=== PATIENT | male | born 1950 | race Caucasian/White ===

== ENCOUNTER → 2018-06-25 | Outpatient (CLI) | payer MEDICARE, OTHER ==
--- NOTE | 2018-06-25 11:03 | US ---
EXAMINATION TYPE: US venous doppler duplex LE RT DATE OF EXAM: 06/25/2018 10:52 AM COMPARISON: NONE CLINICAL HISTORY: 67-year-old male R60.0 Edema. Right leg pain. No blood thinners. No swelling. No redness. SIDE PERFORMED: Right TECHNIQUE: The lower extremity deep venous system is examined utilizing real time linear array sonog mar[place] with graded compression, doppler sonography and color-flow sonography. FINDINGS: VESSELS IMAGED: External Iliac Vein (EIV) Common Femoral Vein Deep Femoral Vein Greater Saphenous Vein * Femoral Vein Popliteal Vein Small Saphenous Vein * Proximal Calf Veins (* superficial vessels) Right Leg: Negative for DVT IMPRESSION: No evidence for DVT within the right lower extremity imaged from the groin to the upper calf.
== END | disposition home or self-care (01) ==
LOC: RADUSWWP 10:19
PROVIDERS: ATTEND Family Medicine
DX: R60.0 Localized edema (principal)

== ENCOUNTER → 2018-06-27 | Outpatient (CLI) | payer MEDICARE, OTHER | LOC: LABWHC1 16:39 | PROVIDERS: ATTEND Physical Medicine & Rehabilitation | DX: Z01.812 Encounter for preprocedural laboratory examination (principal); N28.9 Disorder of kidney and ureter, unspecified | CPT/HCPCS: 36415; 82565; 84520 ==

== ENCOUNTER 2018-10-18 10:25 | Day surgery (SDC) | payer MEDICARE, OTHER ==
[2018-10-15 15:41] VITALS: BMI 40.1
[~2018-10-18 10:25] MED LIST: SODIUM CHLORIDE 0.9% 1,000 ML IV SCH
[2018-10-18 11:01] VITALS: TEMP 97.7
[2018-10-18] MEDS ORDERED: SODIUM CHLORIDE 0.9% 500 ML 500 ML IV ONE (11:30)
[2018-10-18] MEDS ORDERED: SODIUM CHLORIDE 0.9% 1,000 ML IV SCH (12:00)
[2018-10-18] MEDS ORDERED: DEXTROSE 5% IN WATER 100 ML with AMIODARONE 150 MG IV ONE (12:02)
[2018-10-18] MEDS ORDERED: AMIODARONE 360 MG in DEXTROSE 5% IN WATER 200 ML IV ONE ×2 (12:03)
--- NOTE | 2018-10-18 12:25 | ECHOT ---
TRANSESOPHAGEAL ECHOCARDIOGRAM Mr. Bryan is a 68-year-old gentleman who recently was found to be in atrial fibrillation. Patient has a prior history of ablation. The patient was advised cardioversion with a success rate of 50%. The patient was given intravenous sedation with propofol by the nurse anesthesiologist. Transesophageal echocardiogram was performed without any complications. Left ventricular chamber is normal in size with evidence of global hypokinesia with estimated ejection fraction of 40%. Left atrium is sumh-jx-xvogdwbryu enlarged. There is no evidence of thrombus in the left atrium. Left atrial appendage is clear. There is no evidence of thrombus. Right ventricle and right atrial chamber are normal in size. The ascending aorta is normal. Aortic and tricuspid valve and mitral valve morphology is normal. There is mild mitral regurgitation noted. There is evidence of small PFO with minimum uayo-ps-tmjzh shunt and small jtvui-dn-vdlm shunt on saline contrast study which is secondary to patient history of prior ablation. Descending thoracic aorta is normal. FINAL IMPRESSION: 1. There is no evidence of thrombus in the left atrial appendage or left atrium. 2. Left ventricular chamber shows global hypokinesia with ejection fraction of 40%. 3. There is mild mitral regurgitation noted. 4. There is evidence of small patent foramen ovale with minimal gixn-se-ibdff and hyexu-us-hypp shunt. This is most likely secondary to patient's history of prior ablation. RECOMMENDATIONS: Proceed with cardioversion. MMODL / IJN: [id number] /
--- NOTE | 2018-10-18 12:31 | CE ---
CARDIAC ELECTROPHYSIOLOGY REPORT PROCEDURE: Cardioversion. Patient was given intravenous sedation with propofol by the nurse spray painter and successful cardioversion was performed with 360 joules applied in the synchronized mode. The patient's vital signs remain stable. We will give the patient IV amiodarone for 6 hours before discharge. MOSHE / GLENDY: [id number] /
[2018-10-18 15:44] VITALS: RESP 18
[2018-10-18 16:17] VITALS: BP 127/68; PULSE 66
== END 2018-10-18 19:11 | disposition home or self-care (01) ==
LOC: CATHCVL 10:25 → 3SCARD 17:08 → CATHCVL 19:11
PROVIDERS: ATTEND Internal Medicine Cardiovascular Disease
DX: I48.1 Persistent atrial fibrillation (principal); I34.0 Nonrheumatic mitral (valve) insufficiency; Q21.1 Atrial septal defect; I44.7 Left bundle-branch block, unspecified; I11.9 Hypertensive heart disease without heart failure; E78.5 Hyperlipidemia, unspecified; Z72.0 Tobacco use; E66.01 Morbid (severe) obesity due to excess calories; Z82.49 Family history of ischemic heart disease and other diseases of the circulatory system; Z79.82 Long term (current) use of aspirin; Z79.899 Other long term (current) drug therapy; Z79.01 Long term (current) use of anticoagulants; Z85.46 Personal history of malignant neoplasm of prostate; Z90.79 Acquired absence of other genital organ(s); Z68.41 Body mass index [BMI] 40.0-44.9, adult
CPT/HCPCS: 93312; 92960; J0282 ×2; 93320; 93325

== ENCOUNTER 2019-02-18 05:34 | Day surgery (SDC) | payer MEDICARE, OTHER ==
[~2019-02-18 05:34] MED LIST changes: +ACETAMINOPHEN TAB 500 MG TAB PO ONE; +MELOXICAM 7.5 MG TAB PO ONE; +ONDANSETRON 4 MG/2 ML VIAL IVP ONE; -SODIUM CHLORIDE 0.9% 1,000 ML IV SCH; +TRANEXAMIC ACID 1,000 MG in SODIUM CHLORIDE 0.9% 100 ML IVPB ONE; +ceFAZolin 3 GM in SODIUM CHLORIDE 0.9% 100 ML IVPB ONE
[2019-02-18] MEDS ORDERED: LIDOCAINE 1% 20 ML VIAL (10MG/ML) FOR IV START INTRADERMA PRN (05:46)
[2019-02-18] MEDS ORDERED: DEXAMETHASONE SOD PHOSPHATE 10 MG/ML 1 ML VIAL IV ONE (05:46)
[2019-02-18] MEDS ORDERED: ONDANSETRON 4 MG/2 ML VIAL IVP PRN ×2 (05:46→08:54)
[2019-02-18] MEDS ORDERED: ROPIVACAINE 246.25 MG, EPINEPHrine 0.5 MG, KETOROLAC 30 MG, cloNIDine HCL/PF 80 MCG, WA... MISCELLANE ONE ×5 (06:25)
[2019-02-18] MEDS: LACTATED RINGERS 1,000 ML IV SCH ×3 (06:37→22:08)
[2019-02-18] MEDS ORDERED: MIDAZOLAM (PF) 2 MG/2 ML VIAL IV ONE (06:47)
[2019-02-18] MEDS ORDERED: SODIUM CHLORIDE 0.9% 100 ML BAG ONE (07:33)
[2019-02-18] MEDS ORDERED: MIDAZOLAM 2 MG/2 ML VIAL ONE (07:33)
[2019-02-18] MEDS ORDERED: PROPOFOL 10 MG/ML 20 ML VIAL IV ONE (07:33)
[2019-02-18] MEDS ORDERED: diphenhydrAMINE 50 MG/ML 1 ML VIAL ONE (07:33)
[2019-02-18] MEDS ORDERED: fentaNYL (PF) 50 MCG/ML 2 ML AMP ONE (07:33)
[2019-02-18] MEDS ORDERED: TRANEXAMIC ACID 1,000 MG/10 ML VIAL ONE (07:33)
[2019-02-18] MEDS ORDERED: ceFAZolin 3,000 MG in SODIUM CHLORIDE 0.9% IRRIGATIO 3,000 ML IRRIGATION ONE (07:38)
[2019-02-18] MEDS ORDERED: ROPIVACAINE 246.25 MG, EPINEPHrine 0.5 MG, KETOROLAC 30 MG, cloNIDine HCL/PF 80 MCG, WA... MISCELLANE STA ×5 (07:45)
[2019-02-18] MEDS ORDERED: ROPIVACAINE 0.2%-NS ON-Q PUMP 1,090 MG, EMPTY PAIN BALL 1 EACH MISCELLANE PRN (08:16)
--- NOTE | 2019-02-18 08:19 | P.ANPRN ---
Procedure Note - Anesthesia - Nerve Block Performed Right Adductor Canal Infusion Time Out Performed: Yes Date of Procedure: 02/18/19 Procedure Start Time: 06:47 Procedure Stop Time: 06:58 Location of Patient Procedure: PreOp Indication: Acute Post-Operative Pain, Requested by physician Sedation Type: Sedate with meaningful contact maintained Preparation: Sterile Prep, Sterile Dressing Position: Supine Catheter: Indwelling Needle Types: Pajunk Needle Gauge: 21 Technique: Ultrasound Injectate: 0.5% Ropivacaine (see comment for volume) (ropi .5% 20cc) Blood Aspirated: No Pain Paresthesia on Injection Noted: No Resistance on Injection: Normal Events: Uneventful and Well Tolerated
[2019-02-18] MEDS ORDERED: LACTATED RINGERS 1,000 ML IV ONE (08:29)
[2019-02-18] MEDS ORDERED: HYDROmorphone 0.5 MG/0.5 ML SYRINGE IVP PRN ×3 (08:54)
[2019-02-18] MEDS ORDERED: TEMAZEPAM 15 MG CAP PO PRN (08:54)
[2019-02-18] MEDS ORDERED: BISACODYL 10 MG SUPP RECTAL PRN (08:54)
[2019-02-18] MEDS ORDERED: HYDROcodone/APAP 5-325MG 1 EACH TAB PO PRN ×2 (08:54)
[2019-02-18] MEDS ORDERED: NALOXONE 0.4 MG/ML 1 ML VIAL IV PRN (08:54)
[2019-02-18] MEDS ORDERED: MAGNESIUM HYDROXIDE 2,400 MG/10 ML CUP PO PRN (08:54)
[2019-02-18] MEDS ORDERED: NA PHOS,M-B/NA PHOS,DI-BA 133 ML ENEMA RECTAL PRN (08:54)
--- NOTE | 2019-02-18 09:58 | P.OP ---
Date of Procedure: 02/18/19 Procedure(s) Performed: PREOPERATIVE DIAGNOSIS: Right knee severe osteoarthritis with genu varum POSTOPERATIVE DIAGNOSIS: Right knee severe osteoarthritis with genu varum OPERATION: Right knee cemented total replacement arthroplasty. ANESTHESIA: Spinal ESTIMATED BLOOD LOSS: 100 ml. STORAGE BATTERY TESTER: None COMPLICATIONS: None apparent. COMPONENTS IMPLANTED: Journey II BCS total knee system from [employer] and Panop[employer]Evelyn INDICATIONS: Mr. Bryan is a 68 year old male with a history of right knee osteoarthritis. The patient's knee is end-stage, and conservative management has failed. The operation of knee replacement has been discussed at length in the office, as well as potential risks and complications. These are inclusive of, but not limited to: bleeding, infection, scarring, discomfort, blood vessel and nerve damage, need for further surgery, failure to relieve symptoms, persi stence, recurrence, or worsening of problems, loosening, dislocation, wear, blood clot, pulmonary embolism, , gait dysfunction, stiffness, and other risks as discussed in the office. The patient elects to proceed and the consent form has been signed. PROCEDURE: The patient was taken to the operating room and positioned on the operating room table in the supine position. Anesthesia was initiated. Care was taken to make sure that all pressure points were adequately padded. The right operative lower extremity was prepped and draped in the usual aseptic fashion using ChloraPrep. Ioban drape was used for the case and the patient received intravenous antibiotics within one hour of the incision. A pneumotourniquet and leg benson were used for the case. The limb was exsanguinated with an Esmarch bandage and the tourniquet was inflated to 350 mmHg. Time-out was called confirming the patient's identity, side, procedure and administration of antibiotics and tranexamic acid. The incision was then created midline directly over the left knee, carried down through skin and into the subcutaneous tissues and down to fascia. Full thickness subcutaneous medial flap was developed. Medial parapatellar arthrotomy was performed and the interior of the knee was inspected. There was end-stage osteoarthritis of the knee with a mild to moderate genu varum type deformity. The fat pad was excised and proximal medial release on the tibia was completed using meticulous dissection and a curved osteotome. The anterior cruciate ligament was taken down. Note was made of significant attrition of the anterior and significant degenerative appearance of the cruciate ligaments. The exposure was excellent. The knee was flexed 90 degrees and the patella was everted. The Visionaire pre- made distal cutting block was attached and pinned into position. The planned cut was analyzed visually and found to be satisfactory without the need for any adjustment. The oscillating saw was then used to make the distal femoral cut. This cut was confirmed to be flat with the flat end of an osteotome. The retractors were placed around the tibia and the tibial surface was addressed. The Visionaire pre-made guide was placed onto the exposed tibial surface and pinned into position to tacho the rotational alignment. The alignment of the guide was checked for depth of plannned resection, slope, and varus valgus. Guide was confirmed to be in good position and the tibial cut was then created with protection of the posterior neurovascular structures and the collateral ligaments. The tibial cut surface was removed and sized. Femoral sizing was then accomplished using posterior referencing. Care was taken to analyze the posterior condyles for signs of deficiency or severe wear, and adjustments to the guide were made, as appropriate. 3 degree external rotation pins were placed relative to Marco A's line. The cutting jig for the femur was applied to these pins. The planned cuts were further analyzed prior to performing them with the oscillating saw. No femoral notching was produced. Bone fragments were removed and the cut surfaces were finished, as necessary, with a reciprocating saw. Spacer block technique was then used to confirm that the flexion and extension gaps were equal. Soft tissue releases and adjustment of the tibial and/or femoral cuts were made, as necessary, until the gaps were equal. This included release of the posterior cruciate ligament, which was excessively tight in this patient. The femur was then further finished for a posterior cruciate ligament substituting component. Patellar resurfacing was performed using a reamer. The size of the required patellar component was estimated and the patellar surface was then reamed down to a residual thickness which would recreate the [place] thickness with the component. The exact placement of the patellar component was adjusted for position based on preoperative x-rays and intraoperative findings. Prior to placing trial components, anesthetic solution consisting of ropivicaine with epinephrine, ketorolac, and clonidine was injected carefully and methodically in a grid pattern using aspiration technique into the soft tissue around the knee circumferentially, starting with the deeper tissues first and progressing to fascia, and then finally the skin/subcutaneous tissue. Particular care was taken when injecting the posterior capsule. The trial components were inserted. The tibial tray was allowed to self center and the patella was noted to track very well. The position of the tibial compon ent was marked and noted to be nearly exactly aligned with the pre-drilled holes from the Visionaire guide. The tibia was then finished for a stemmed tibial component. Cement was mixed on the back table and applied to the final components. Trial components were removed and the cut surfaces of the bone were pulse lavaged thoroughly and dried. Cement was then applied to the tibial surface and pressurized into the surface using finger pressurization technique. The tibial component was then applied and excess cement was removed after it was impacted securely and noted to be flush with the cut surface. In similar fashion, the cement was applied to the cut femoral surface, pressurized in using finger pressurization and the component was impacted into place. Excess cement was removed. The polyethylene spacer was then implanted and locked into position. The patellar component was then applied in similar technique and a patellar clamp was used to hold the patella in place as the cement hardened. Once the cement had fully hardened, the knee was reinspected. Any other cement extrusion was removed and final kinematic testing showed range of motion from 0 to 130 degrees with excellent stability, both medially and laterally and appropriate alignment of the leg. Patellar tracking was excellent. The knee was then thoroughly pulse lavaged with normal saline. The tourniquet was deflated and hemostasis was obtained with electrocautery and IV tranexamic acid, 1 g given at the start of the operation and 1 g at the start of closure. Closure was with #2 Ethibond in the fascia/capsule and supplemented with #2 Quill, 2-0 Vicryl suture was used for the subcutaneous tissues and 3-0 Quill for the skin. Dermabond/Steri-Strips were then applied. A lightly compressive dressing was applied using Webril and an Francisco wrap. The patient was then transferred to stretcher and taken to the recovery room in stable condition. Sponge and needle counts were correct.
[2019-02-18] MEDS: HYDROmorphone 0.5 MG/0.5 ML SYRINGE IVP PRN ×2 (10:30→10:48)
--- NOTE | 2019-02-18 10:56 | XR ---
EXAMINATION TYPE: XR knee limited RT DATE OF EXAM: 02/18/2019 CLINICAL HISTORY: Postoperative evaluation Two views of the right knee are submitted. Identified are changes of total knee arthroplasty with femoral and tibial components appearing well seated. Postsurgical soft tissue changes are noted. Alignment is anatomic.
[2019-02-18 12:59] VITALS: BMI 39.9
--- NOTE | 2019-02-18 16:17 | P.CONS ---
History of Present Illness - Reason for Consult Consult date: 02/18/19 Medical management Requesting physician: Terry Wharton - Chief Complaint Right knee pain - History of Present Illness 68-year-old male with PMH of atrial fibrillation, hypertension, history of prostate cancer status post robotic removal presents to [facility] for elective right knee replacement. Patient underwent right knee cemented total replacement arthroplasty without complications. Anesthesia was able to insert a right adductor canal nerve block. Patient was seen and examined after his procedure. Patient reports 1-2 out of 10 severity right knee pain. States that he was able to walk with the aid of a walker down the hallway with physical therapy today. He denies any headaches, lower extremity edema, nausea or vomiting, fever or chills, cough, chest pain, shortness of breath, palpitations, changes in urination or bowel habits. No changes in appetite or weight. Patient denies any dizziness, numbness/weakness/tingling of the extremities. Review of Systems Pertinent positives and negatives as discussed in HPI, a complete review of systems was performed and all other systems are negative. 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., SELDOVIA -USES HEARING AIDS, had 5 teeth pulled last week History of Any Multi-Drug Resistant Organisms: None Reported Past Surgical History: Cardiac Ablation, Orthopedic Surgery, Prostate Surgery, Tonsillectomy Additional Past Surgical History / Comment(s): 02/16/15 robotic laparoscopic prostatectomy with short term supra pubic catheter-done at [facility] facility, [place] [facility] [place], R knee arthroscopy, cardioversion Past Anesthesia/Blood Transfusion Reactions: No Reported Reaction Past Psychological History: No Psychological Hx Reported Additional Psychological History / Comment(s): . Smoking Status: Former smoker Past Alcohol Use History: Occasional Additional Past Alcohol Use History / Comment(s): Pt states he smoked pipe for approximately 10 yrs and quit 5-6 yrs ago (2012). Past Drug Use History: None Reported - Past Family History Father Family Medical History: Cancer, Coronary Artery Disease (CAD), Myocardial Infarction (ME) Additional Family Medical History / Comment(s): Father had heart disease, ME, stents and valve replacement all of which started in his 40's and he lived to be 80 yrs old. Mother Family Medical History: No Reported History Additional Family Medical History / Comment(s): states multiple health problems Medications and Allergies Home Medications Medication Instructions Recorded Confirmed Type Furosemide [Lasix] 40 mg PO DAILY 10/04/18 02/18/19 History Multivitamin/Iron/Folic Acid 1 tab PO DAILY 10/04/18 02/18/19 History [Centrum Adults Tablet] Apixaban [Eliquis] 5 mg PO BID #60 tab 10/06/18 02/18/19 Rx Losartan [Cozaar] 25 mg PO DAILY #30 tab 10/06/18 02/18/19 Rx Metoprolol Succinate (ER) [Toprol 25 mg PO DAILY #30 tab.er.24h 10/06/18 02/18/19 Rx XL] Amiodarone [Cordarone] 200 mg PO DAILY 02/11/19 02/18/19 History Penicillin V Potassium [Pen Vee K] 500 mg PO BID 02/11/19 02/18/19 History HYDROcodone/APAP 5-325MG [[place] 1 - 2 each PO Q4-6H PRN #50 tab 02/18/19 Rx 5-325] Sennosides-Docusate Sodium 1 tab PO BID #60 tablet 02/18/19 Rx [Senokot-S] Allergies Allergy/AdvReac Type Severity Reaction Status Date / Time No Known Allergies Allergy Verified 02/18/19 05:48 Physical Exam Vitals: Vital Signs Temp Pulse Pulse Resp BP BP Pulse Ox 02/18/19 11:04 67 18 104/54 97 02/18/19 10:50 66 16 105/54 96 02/18/19 10:46 97.6 F 67 18 111/62 98 02/18/19 10:35 62 16 104/52 98 02/18/19 10:20 97.2 F L 61 18 95/54 94 L 02/18/19 07:00 58 L 16 141/62 97 02/18/19 05:54 98.0 F 60 16 120/72 96 Intake and Output 02/18/19 02/18/19 02/18/19 06:59 14:59 22:59 Intake Total 300 1501 Output Total 300 Balance 300 1201 Intake: IV 300 1501 Output: Urine 250 Estimated Blood Loss 50 General: [non toxic], [no distress], [appears at stated age] Derm: [warm], [dry] Head: [atraumatic], [normocephalic], [symmetric] Eyes: [EOMI], [no lid lag], [anicteric sclera] Mouth: [no lip lesion], [mucus membranes moist] Cardiovascular: [S1S2 reg], [no murmur], [positive DP pulse bilateral] Lungs: [CTA bilateral], [no rhonchi, no rales] , [no accessory muscle use] Abdominal: [soft], [ nontender to palpation], [no guarding], [no appreciable organomegaly] Ext: [no gross muscle atrophy], [no edema], [no contractures], [right knee wrapped] Neuro: [ CN II-XI grossly intact], [no focal neuro deficits] Psych: [Alert], [oriented], [appropriate affect] Assessment and Plan Assessment: Assessment and Plan Atrial fibrillation Hypertension Strep positive nasal swab History of prostate cancer status post robotic surgical removal of prostate Severe right knee osteoarthritis status post cemented total replacement arthroplasty. Obesity Rate controlled. Plans: Continue amiodarone for rhythm control. Continue metoprolol for rate control. Eliquis for anticoagulation. BP 104/54. Plans: Continue metoprolol, losartan. Monitor vitals, adjust medications as necessary. Patient reports positive strep results from outpatient setting. Started on penicillin by mouth twice a day. States that he has about 4 pills remaining. Plans: Resume penicillin V for 4 more doses. Patient sees PCP Dr. Joshua. States that his most recent PSA was 0. Plans: Need adequate follow-up with PCP. Plans: Management as per orthopedic surgery. BMI 40.2. Plans: Structured weight loss program. DVT prophylaxis: [Eliquis] Discussed with: [Patient] Anticipated discharge: [1-2 days] Anticipated discharge place: [Home] A total of [30] minutes was spent on the care of this complex patient more than 50% of the time was spent in counseling and care coordination.
[2019-02-18] MEDS: ceFAZolin 3 GM in SODIUM CHLORIDE 0.9% 100 ML IVPB SCH ×2 (18:18→23:23)
[2019-02-18] MEDS: MELOXICAM 7.5 MG TAB PO SCH (18:21)
[2019-02-18] MEDS: APIXABAN 5 MG TAB PO SCH (20:05)
[2019-02-18] MEDS ORDERED: SENNOSIDES-DOCUSATE SODIUM 1 EACH TAB PO SCH (21:00)
[2019-02-19 01:10] VITALS: RESP 16
[2019-02-19] MEDS: LACTATED RINGERS 1,000 ML IV SCH ×2 (05:36→05:42)
[2019-02-19 07:14] LABS: Basophils % (A) 0 %; Eosinophils # (A) 0.1 k/uL (0-0.7); Eosinophils % (A) 1 %; HCT 40.8 % (39.0-53.0); HGB 13.3 gm/dL (13.0-17.5); Lymphocytes % (A) 8 %; MCH 29.4 pg (25.0-35.0); MCHC 32.7 g/dL (31.0-37.0); MCV 90.2 fL (80.0-100.0); Mean Platelet Volume 6.9; Monocytes # (A) 1.1 k/uL (0-1.0); Monocytes % (A) 9 %; Neutrophils # (A) 9.8 k/uL (1.3-7.7); Neutrophils % (A) 80 %; Platelet Count 208 k/uL (150-450); RBC 4.52 m/uL (4.30-5.90); RDW 14.5 % (11.5-15.5); WBC 12.3 k/uL (3.8-10.6)
--- NOTE | 2019-02-19 08:24 | P.PN ---
Progress Note - Text 02/19/2019 743am 68-year-old male status post total knee replacement by Dr. Wharton. Patient has an On-Q pump for postop pain control with the solution running at 7 mL an hour with a VAS of 1. Plan to continue On-Q pump
[2019-02-19 08:31] VITALS: BP 120/62; PULSE 65; TEMP 98.4
[2019-02-19] MEDS ORDERED: FUROSEMIDE 40 MG TAB PO SCH (09:00)
[2019-02-19] MEDS ORDERED: METOPROLOL SUCCINATE (ER) 25 MG TAB.ER.24H PO SCH (09:00)
[2019-02-19] MEDS ORDERED: LOSARTAN 25 MG TAB PO SCH (09:00)
[2019-02-19] MEDS ORDERED: AMIODARONE 200 MG TAB PO SCH (09:00)
[2019-02-19] MEDS: MELOXICAM 7.5 MG TAB PO SCH (09:22)
[2019-02-19] MEDS: APIXABAN 5 MG TAB PO SCH (09:22)
[2019-02-19] MEDS ORDERED: PENICILLIN V POTASSIUM 250 MG TAB PO SCH (10:00)
--- NOTE | 2019-02-19 11:06 | P.DS ---
Providers Expected date of discharge: 02/19/19 Attending physician: Terry Wharton Consults: 02/18/19 08:54 Consult Physician Routine Consulting Provider: [facility] Consult Reason/Comments: Medical management Do you want consulting provider notified?: Yes Primary care physician: Chris Joshua - Discharge Diagnosis(es) (1) S/P total knee arthroplasty Patient was admitted to the OR on 02/18/2019 to undergo a right total knee arthroplasty. He had failed conservative measures an outpatient and desired to proceed with elective surgery after given informed consent. He underwent the above procedure which he tolerated well without complication. Postoperative hospital course has remained without complication. On day of discharge he is afebrile, vital signs stable, labs within acceptable ranges, tolerating by mouth meds and diet, voiding without difficulty, positive flatus, denies abdominal pain or calf pain, pain is controlled on oral pain medication and has no new complaints. Wound is benign, neurovascular status is intact, calf is soft and nontender, abdomen soft and nontender. Review of systems is negative for numbness, tingling, fever, chills, chest pain, shortness breath, nausea, vomiting, dizziness, headaches, slurred speech or other Current Visit: Yes Status: Acute Priority: Medium Procedures: Right TKA Patient Condition at Discharge: Good Plan - Discharge Summary Discharge Rx Participant: Yes New Discharge Prescriptions: New HYDROcodone/APAP 5-325MG [[place] 5-325] 1 - 2 each PO Q4-6H PRN #50 tab PRN Reason: Pain Sennosides-Docusate Sodium [Senokot-S] 1 tab PO BID #60 tablet No Action Multivitamin/Iron/Folic Acid [Centrum Adults Tablet] 1 tab PO DAILY Furosemide [Lasix] 40 mg PO DAILY Losartan [Cozaar] 25 mg PO DAILY #30 tab Apixaban [Eliquis] 5 mg PO BID #60 tab Metoprolol Succinate (ER) [Toprol XL] 25 mg PO DAILY #30 tab.er.24h Amiodarone [Cordarone] 200 mg PO DAILY Penicillin V Potassium [Pen Vee K] 500 mg PO BID Discharge Medication List Furosemide [Lasix] 40 mg PO DAILY 10/04/18 [History] Multivitamin/Iron/Folic Acid [Centrum Adults Tablet] 1 tab PO DAILY 10/04/18 [History] Apixaban [Eliquis] 5 mg PO BID #60 tab 10/06/18 [Rx] Losartan [Cozaar] 25 mg PO DAILY #30 tab 10/06/18 [Rx] Metoprolol Succinate (ER) [Toprol XL] 25 mg PO DAILY #30 tab.er.24h 10/06/18 [Rx] Amiodarone [Cordarone] 200 mg PO DAILY 02/11/19 [History] Penicillin V Potassium [Pen Vee K] 500 mg PO BID 02/11/19 [History] HYDROcodone/APAP 5-325MG [[place] 5-325] 1 - 2 each PO Q4-6H PRN #50 tab 02/18/19 [Rx] Sennosides-Docusate Sodium [Senokot-S] 1 tab PO BID #60 tablet 02/18/19 [Rx] Follow up Appointment(s)/Referral(s): Mary Fuentes PAC [[facility] [employer]] - 2 Weeks Chris Joshua MD [Primary Care Provider] - 1 Week Activity/Diet/Wound Care/Special Instructions: May bear wt as tolerated. May shower if no drainage from incision 48h post op. Medical to manage anticoagulation at discharge. Discharge Disposition: HOME SELF-CARE
--- NOTE | 2019-02-19 12:40 | P.PN ---
Subjective Progress Note Date: 02/19/19 Principal diagnosis: knee pain Patient is a 68-year-old male with a past medical history of atrial fibrillation, chronic back pain, dyslipidemia, and hypertension who presented for right total knee arthroplasty. He tolerated procedure well without any immediate postoperative complications. Patient seen and examined at bedside. Pain is controlled worse with movement. He feels that he manage at home. He denies any chest pain, shortness breath, nausea, or vomiting. Objective - Vital Signs Vital signs: Vital Signs Temp 98.4 F 02/19/19 07:50 Pulse 65 02/19/19 07:50 Resp 16 02/19/19 00:51 BP 120/62 02/19/19 07:50 Pulse Ox 97 02/19/19 07:50 Intake & Output 02/18/19 02/19/19 02/19/19 18:59 06:59 18:59 Intake Total 1501 100 Output Total 300 Balance 1201 100 Intake: IV 1501 Intake, IV Titration 100 Amount ceFAZolin 3 gm In Sodium 100 Chloride 0.9% 100 ml @ 200 mls/hr IVPB Q8HR [facility] Rx#:[id number] Output: Urine 250 Estimated Blood Loss 50 Other: Voiding Method Urinal Urinal Urinal # Voids 3 - Exam General: non toxic, no distress, appears at stated age Derm: warm, dry Head: atraumatic, normocephalic, symmetric Eyes: EOMI, no lid lag, anicteric sclera Mouth: no lip lesion, mucus membranes moist Cardiovascular: S1S2 reg, no murmur, positive posterior tibial pulse bilateral, Lungs: Decreased breath sounds bilateral bases, no rhonchi, no rales , no accessory muscle use Ext: no gross muscle atrophy, no edema, no contractures, dressing in place over right knee Psych: Alert, oriented, appropriate affect - Labs CBC & Chem 7: 02/19/19 06:44 Labs: Abnormal Lab Results - Last 24 Hours (Table) 02/19/19 Range/Units 06:44 WBC 12.3 H (3.8-10.6) k/uL Neutrophils # 9.8 H (1.3-7.7) k/uL Monocytes # 1.1 H (0-1.0) k/uL Assessment and Plan Assessment: Atrial fibrillation with controlled ventricular response -Continue with Eliquis -Metoprolol -Amiodarone Hypertension -Resume home medications -Follow blood pressures Morbid obesity with BMI 40.2 -Structured outpatient weight loss Right total knee arthroplasty -Management per orthopedic surgery -Follow with PCP next week Patient's discharge medication reconciliation reviewed and updated, medically stable for discharge once optimized per orthopedic surgery.
== END 2019-02-19 13:51 | disposition home or self-care (01) ==
LOC: OR 05:34 → 4SSUR 10:36 → OR 02-19 13:51
PROVIDERS: ATTEND Orthopaedic Surgery
DX: M17.11 Unilateral primary osteoarthritis, right knee (principal); M21.161 Varus deformity, not elsewhere classified, right knee; I10 Essential (primary) hypertension; I48.1 Persistent atrial fibrillation; M51.17 Intervertebral disc disorders with radiculopathy, lumbosacral region; G89.29 Other chronic pain; E78.5 Hyperlipidemia, unspecified; E66.01 Morbid (severe) obesity due to excess calories; A49.1 Streptococcal infection, unspecified site; H91.90 Unspecified hearing loss, unspecified ear; Z87.891 Personal history of nicotine dependence; Z79.01 Long term (current) use of anticoagulants; Z79.899 Other long term (current) drug therapy; Z85.46 Personal history of malignant neoplasm of prostate; Z92.3 Personal history of irradiation; Z98.890 Other specified postprocedural states; Z90.79 Acquired absence of other genital organ(s); Z90.49 Acquired absence of other specified parts of digestive tract; Z97.4 Presence of external hearing-aid; Z97.3 Presence of spectacles and contact lenses; Z68.41 Body mass index [BMI] 40.0-44.9, adult; Z80.42 Family history of malignant neoplasm of prostate; Z80.1 Family history of malignant neoplasm of trachea, bronchus and lung; Z82.49 Family history of ischemic heart disease and other diseases of the circulatory system
CPT/HCPCS: 27447; 64448; 97116; 97161; 85025; 88300; 73560; C1713; C1776; C1772; J2250 ×2; J0171; J1200; J1100; J0690 ×2; J2405; J3010; J1885; J2795 ×2; J2704; J0735; J1170

== ENCOUNTER → 2019-07-11 | Outpatient (CLI) | payer MEDICARE, OTHER ==
[2019-07-11 11:38] LABS: Basophils % (A) 1 %; Eosinophils # (A) 0.1 k/uL (0-0.7); Eosinophils % (A) 2 %; HCT 45.6 % (39.0-53.0); HGB 15.2 gm/dL (13.0-17.5); Lymphocytes # (A) 1.5 k/uL (1.0-4.8); Lymphocytes % (A) 21 %; MCH 29.8 pg (25.0-35.0); MCHC 33.3 g/dL (31.0-37.0); MCV 89.4 fL (80.0-100.0); Mean Platelet Volume 7.5; Monocytes # (A) 0.6 k/uL (0-1.0); Monocytes % (A) 8 %; Neutrophils # (A) 4.7 k/uL (1.3-7.7); Neutrophils % (A) 66 %; Platelet Count 205 k/uL (150-450); WBC 7.1 k/uL (3.8-10.6)
[2019-07-11 11:50] LABS: ALT 25 U/L (4-49); AST 26 U/L (17-59); African American GFR (CKD) >90 (>60 ml/min/1.73 sqM); Albumin 4.2 g/dL (3.5-5.0); Alkaline Phosphatase 56 U/L (38-126); Anion Gap 9 mmol/L; Blood Urea Nitrogen 24 mg/dL (9-20); Calcium 9.4 mg/dL (8.4-10.2); Carbon Dioxide 24 mmol/L (22-30); Chloride 106 mmol/L (98-107); Glucose 98 mg/dL (74-99); Non-African American GFR(CKD) 83 (>60 ml/min/1.73 sqM); Potassium 4.2 mmol/L (3.5-5.1); Sodium 139 mmol/L (137-145); Total Bilirubin 1.5 mg/dL (0.2-1.3); Total Protein 7.2 g/dL (6.3-8.2)
--- NOTE | 2019-07-11 12:52 | CT ---
EXAMINATION TYPE: CT abdomen pelvis w con DATE OF EXAM: 07/11/2019 COMPARISON: 04/03/2015 HISTORY: 68-year-old male Right sided abdominal pain on and off for 2 months TECHNIQUE: Contiguous axial scanning of the abdomen and pelvis following administration of 100 ml Iso tone 300 IV contrast. Delayed images through the kidneys and coronal/sagittal reconstructions perform ed. CT DLP: 1624 mGycm Automated exposure control for dose reduction was used. FINDINGS: Heart upper limits of normal in size without pericardial effusion. Some strandy atelectasis left base without pleural effusion. Tiny hiatal hernia. Tiny less than 5 mm hypodensity right hepatic dome too small for accurate CT characterization, nonspe cific, possible tiny cyst. No other focal liver lesion or biliary ductal dilatation. Portal venous sy stem is patent. Gallbladder, adrenal glands, kidneys, spleen, and pancreas appear within normal limits. No dilated small bowel, free fluid, or free air. No mesenteric or retroperitoneal. Normal appendix. Oral contrast progressed to the mid transverse colon. Scattered mild stool is present. The sigmoid colon is redundant heading into the right side of the midabdomen. Along the sigmoid colon here, there is a round 1.1 cm lesion that shows central fat density, axial image 53. Moderate circumferential bladder wall thickening. Prostate gland appears surgically absent. Interval resolution of the previous lymphocele seen along the pelvic sidewalls in 2014. No abnormal fluid sai ection in the pelvis or pelvic lymphadenopathy. Bones: Mild degenerative changes of the hips. Degenerative change right SI joint. Moderate to advance d degenerative disc disease L4-L5 and L5-S1. Moderate degenerative disc disease visualized lower thor acic spine. IMPRESSION: 1. Redundant sigmoid colon heading into the right mid abdomen with a round 1.1 cm pericolonic lesion that shows central fat density. Findings may reflect epiploic appendagitis. 2. Tiny hiatal hernia. 3. Moderate circumferential bladder wall thickening could represent chronic bladder wall hypertrophy, cystitis, or posttreatment change. Clinically correlate. Prostate gland surgically absent.
== END | disposition home or self-care (01) ==
LOC: RADCTMAIN 10:14
PROVIDERS: ATTEND Nurse Practitioner Adult Health
DX: K44.9 Diaphragmatic hernia without obstruction or gangrene (principal); Q43.8 Other specified congenital malformations of intestine; N32.89 Other specified disorders of bladder; R10.31 Right lower quadrant pain; Z90.79 Acquired absence of other genital organ(s)
CPT/HCPCS: 80053; 85025; 74177; 36415; Q9967

== ENCOUNTER → 2019-09-02 | Outpatient (CLI) | payer MEDICARE, OTHER ==
--- NOTE | 2019-09-03 06:57 | US ---
EXAMINATION TYPE: US abdomen limited DATE OF EXAM: 09/02/2019 COMPARISON: NONE CLINICAL HISTORY: K43.9 Ventral hernia without obstruction. Patient had several episodes of severe right lower quadrant pain. Assess for hernia at location of: ventral right No evidence of hernia by today's ultrasound. No solid or cystic mass seen. IMPRESSION: No sonographic evidence of hernia in the area of interest at the time of examination. Real-time scanning was performed by the global climate change researcher utilizing Valsalva and additional dynamic maneuve rs to assess for hernia. Images of the contralateral side were also acquired for direct comparison.
== END | disposition home or self-care (01) ==
LOC: RADUSWWP 15:56
PROVIDERS: ATTEND Family Medicine
DX: K43.9 Ventral hernia without obstruction or gangrene (principal)
CPT/HCPCS: 76705

== ENCOUNTER → 2019-12-30 | Outpatient (CLI) | payer MEDICARE, OTHER ==
[2019-12-30 08:14] LABS: Basophils # (A) 0.1 k/uL (0-0.2); Basophils % (A) 1 %; Eosinophils # (A) 0.1 k/uL (0-0.7); Eosinophils % (A) 2 %; HCT 47.6 % (39.0-53.0); HGB 15.2 gm/dL (13.0-17.5); Lymphocytes % (A) 15 %; MCH 28.7 pg (25.0-35.0); MCHC 31.9 g/dL (31.0-37.0); MCV 89.8 fL (80.0-100.0); Mean Platelet Volume 6.9; Monocytes # (A) 0.5 k/uL (0-1.0); Monocytes % (A) 8 %; Neutrophils # (A) 4.6 k/uL (1.3-7.7); Neutrophils % (A) 71 %; Platelet Count 212 k/uL (150-450); RDW 14.1 % (11.5-15.5); WBC 6.5 k/uL (3.8-10.6)
[2019-12-30 08:23] LABS: ALT 24 U/L (4-49); AST 23 U/L (17-59); African American GFR (CKD) >90 (>60 ml/min/1.73 sqM); Albumin 4.3 g/dL (3.5-5.0); Albumin/Globulin Ratio 1.3; Alkaline Phosphatase 71 U/L (38-126); Anion Gap 7 mmol/L; Blood Urea Nitrogen 32 mg/dL (9-20); Calcium 8.8 mg/dL (8.4-10.2); Carbon Dioxide 30 mmol/L (22-30); Chloride 103 mmol/L (98-107); Globulin 3.2 g/dL; Glucose 116 mg/dL (74-99); INR 1.1 (<1.2); Non-African American GFR(CKD) 78 (>60 ml/min/1.73 sqM); Partial Thromboplastin Time 30.5 sec (22.0-30.0); Potassium 4.2 mmol/L (3.5-5.1); Prothrombin Time 11.2 sec (9.0-12.0); Sodium 140 mmol/L (137-145); Total Bilirubin 2.4 mg/dL (0.2-1.3); Total Protein 7.5 g/dL (6.3-8.2)
== END | disposition home or self-care (01) ==
LOC: LABWHC1 07:46
PROVIDERS: ATTEND Nurse Practitioner Adult Health
DX: I48.91 Unspecified atrial fibrillation (principal)
CPT/HCPCS: 36415; 80053; 85025; 85610; 85730

== ENCOUNTER → 2020-06-17 | Outpatient (CLI) | payer MEDICARE, OTHER ==
[2020-06-17 17:02] LABS: Basophils % (A) 1 %; Eosinophils # (A) 0.2 k/uL (0-0.7); Eosinophils % (A) 2 %; HCT 44.8 % (39.0-53.0); HGB 14.7 gm/dL (13.0-17.5); Lymphocytes # (A) 1.6 k/uL (1.0-4.8); Lymphocytes % (A) 21 %; MCH 28.9 pg (25.0-35.0); MCHC 32.8 g/dL (31.0-37.0); MCV 88.3 fL (80.0-100.0); Mean Platelet Volume 7.3; Monocytes # (A) 0.7 k/uL (0-1.0); Monocytes % (A) 9 %; Neutrophils # (A) 5.1 k/uL (1.3-7.7); Neutrophils % (A) 66 %; Platelet Count 229 k/uL (150-450); RBC 5.07 m/uL (4.30-5.90); RDW 14.1 % (11.5-15.5); WBC 7.7 k/uL (3.8-10.6)
[2020-06-17 18:02] LABS: Creatine Kinase MB 0.9 ng/mL (0.0-2.4); Troponin I <0.012 ng/mL (0.000-0.034)
[2020-06-17 18:27] LABS: ALT 20 U/L (4-49); AST 25 U/L (17-59); African American GFR (CKD) 87 (>60 ml/min/1.73 sqM); Albumin/Globulin Ratio 1.4; Alkaline Phosphatase 63 U/L (38-126); Anion Gap 6 mmol/L; Blood Urea Nitrogen 23 mg/dL (9-20); Calcium 9.1 mg/dL (8.4-10.2); Carbon Dioxide 32 mmol/L (22-30); Chloride 104 mmol/L (98-107); Globulin 2.9 g/dL; Glucose 89 mg/dL (74-99); Magnesium 1.9 mg/dL (1.6-2.3); Non-African American GFR(CKD) 75 (>60 ml/min/1.73 sqM); Potassium 3.8 mmol/L (3.5-5.1); Sodium 142 mmol/L (137-145); Total Bilirubin 0.9 mg/dL (0.2-1.3); Total Protein 6.9 g/dL (6.3-8.2)
[2020-06-17 18:43] LABS: T4, Free (Free Thyroxine) 1.46 ng/dL (0.78-2.19)
[2020-06-18 03:18] LABS: Hemoglobin A1C 5.4 % (4.0-6.0)
== END | disposition home or self-care (01) ==
LOC: LABMAIN 16:43
PROVIDERS: ATTEND Nurse Practitioner Adult Health
DX: I48.91 Unspecified atrial fibrillation (principal); R07.9 Chest pain, unspecified; R73.9 Hyperglycemia, unspecified
CPT/HCPCS: 36415; 80053; 82553; 83036; 83735; 84439; 84443; 84484; 85025

== ENCOUNTER → 2021-04-19 | Outpatient (CLI) | payer MEDICARE, OTHER ==
--- NOTE | 2021-04-19 12:14 | US ---
EXAMINATION TYPE: US venous doppler duplex LE LT DATE OF EXAM: 04/19/2021 11:03 AM COMPARISON: NONE CLINICAL HISTORY: [id number] Pain L leg, N50.89 Testicular mass. Left leg pain SIDE PERFORMED: Left TECHNIQUE: The lower extremity deep venous system is examined utilizing real time linear array sonog [place] with graded compression, doppler sonography and color-flow sonography. VESSELS IMAGED: Common Femoral Vein Deep Femoral Vein Greater Saphenous Vein * Femoral Vein Popliteal Vein Small Saphenous Vein * Proximal Calf Veins (* superficial vessels) There is normal flow, compressibility, vascular waveforms Left Leg: Negative for DVT results called to Tani at time of exam IMPRESSION: No evident deep venous thrombosis within the left lower extremity from the level of the k nee centrally
--- NOTE | 2021-04-19 12:26 | US ---
EXAMINATION TYPE: US scrotum with doppler. Grayscale and color Doppler Duplex imaging performed of girish penn scrotum. DATE OF EXAM: 04/19/2021 COMPARISON: NONE CLINICAL HISTORY: [id number] Pain L leg, N50.89 Testicular mass. Pt states right testicle swelling, denie s pain EXAM MEASUREMENTS: TESTICLES: Right Testicle: 3.7 x 2.2 x 2.7 cm Left Testicle: 4.3 x 1.8 x 2.9 cm EPIDIDYMIS HEAD: Right Epididymis: 0.9 cm Left Epididymis: Large cyst= 4.9 x 3.0 x 3.9 cm Doppler performed to assess for testicular vascularity; bilateral color flow and waveforms are seen. Presence of hydroceles: Large hydrocele right scrotum Presence of varicoceles: No Testicular echotexture is symmetric, no intratesticular mass identified bilaterallyResults called girish Freire at Dr's office at time of exam IMPRESSION: Large right hydrocele
[2021-04-19 12:39] LABS: Basophils % (A) 1 %; Eosinophils # (A) 0.1 k/uL (0-0.7); Eosinophils % (A) 2 %; HCT 43.8 % (39.0-53.0); HGB 15.3 gm/dL (13.0-17.5); Lymphocytes # (A) 1.4 k/uL (1.0-4.8); Lymphocytes % (A) 20 %; MCH 30.5 pg (25.0-35.0); MCHC 34.8 g/dL (31.0-37.0); MCV 87.7 fL (80.0-100.0); Mean Platelet Volume 7.1; Monocytes # (A) 0.5 k/uL (0-1.0); Monocytes % (A) 8 %; Neutrophils # (A) 4.7 k/uL (1.3-7.7); Neutrophils % (A) 67 %; Platelet Count 233 k/uL (150-450); RDW 14.5 % (11.5-15.5)
[2021-04-19 13:04] LABS: ALT 34 U/L (4-49); AST 30 U/L (17-59); African American GFR (CKD) >90 (>60 ml/min/1.73 sqM); Albumin 4.2 g/dL (3.5-5.0); Alkaline Phosphatase 78 U/L (38-126); Anion Gap 7 mmol/L; Blood Urea Nitrogen 19 mg/dL (9-20); Calcium 9.2 mg/dL (8.4-10.2); Carbon Dioxide 28 mmol/L (22-30); Chloride 103 mmol/L (98-107); Glucose 116 mg/dL (74-99); Non-African American GFR(CKD) 89 (>60 ml/min/1.73 sqM); Potassium 4.3 mmol/L (3.5-5.1); Sodium 138 mmol/L (137-145); Total Bilirubin 1.4 mg/dL (0.2-1.3); Total Protein 7.2 g/dL (6.3-8.2)
== END | disposition home or self-care (01) ==
LOC: RADUSWWP 10:42
PROVIDERS: ATTEND Family Medicine
DX: M79.605 Pain in left leg (principal); N43.3 Hydrocele, unspecified
CPT/HCPCS: 76870; 80053; 83880; 85025; 93975

== ENCOUNTER → 2021-05-28 | Outpatient (CLI) | payer MEDICARE, OTHER ==
--- NOTE | 2021-05-30 16:43 | NM ---
EXAMINATION TYPE: NM bone scan whole body DATE OF EXAM: 05/28/2021 COMPARISON: NONE HISTORY: 70-year-old male M54.5, M54.16, lumbar radiculopathy and low back pain. TECHNIQUE: Delayed whole-body scanning was performed following the injection of 24.9 mCi Tc 99m MDP. Images acquired 4 hours post injection. FINDINGS: Photopenia at the right knee compatible with previous knee arthroplasty. There is degenerative tracer activity at the right midfoot. Degenerative tracer activity throughout t he left knee, bilateral AC joints, sternoclavicular joints, and sternomanubrial joint. Scattered dege nerative tracer activity middle third thoracic spine and also right sided posterior elements upper to mid lumbar spine. No focal intense activity in the lower lumbar spine. No suspicious distribution of tracer activity suggesting osseous metastatic disease. IMPRESSION: Scattered degenerative tracer activity as outlined above. Previous right knee arthroplasty. No scinti graphic evidence for osseous metastatic disease.
== END | disposition home or self-care (01) ==
LOC: RADNMMAIN 10:45
PROVIDERS: ATTEND Physical Medicine & Rehabilitation
DX: M47.816 Spondylosis without myelopathy or radiculopathy, lumbar region (principal); M19.071 Primary osteoarthritis, right ankle and foot; M17.12 Unilateral primary osteoarthritis, left knee; M19.011 Primary osteoarthritis, right shoulder; M19.012 Primary osteoarthritis, left shoulder
CPT/HCPCS: 78306; A9503

== ENCOUNTER → 2021-06-24 | Outpatient (CLI) | payer MEDICARE, OTHER ==
[~2021-06-24] MED LIST changes: -ACETAMINOPHEN TAB 500 MG TAB PO ONE; +BAMLANIVIMAB (EUA) 700 MG, ETESEVIMAB (EUA) 1,400 MG in SODIUM CHLORIDE 0.9% 50 ML IVPB ONE; -MELOXICAM 7.5 MG TAB PO ONE; -ONDANSETRON 4 MG/2 ML VIAL IVP ONE; +SODIUM CHLORIDE 0.9% 50 ML IVPB ONE; +SODIUM CHLORIDE 0.9% 500 ML 500 ML in EMPTY BAG 1 BAG IV PRN; -TRANEXAMIC ACID 1,000 MG in SODIUM CHLORIDE 0.9% 100 ML IVPB ONE; -ceFAZolin 3 GM in SODIUM CHLORIDE 0.9% 100 ML IVPB ONE
[2021-06-24 10:48] VITALS: PULSE 77
[2021-06-24 11:36] VITALS: BP 120/71; RESP 16; TEMP 98.2
== END ==
LOC: PROCWHC3 09:44
PROVIDERS: ATTEND Family Medicine
DX: U07.1 COVID-19 (principal); E66.9 Obesity, unspecified; Z87.891 Personal history of nicotine dependence
CPT/HCPCS: 96360; J3490; M0245

== ENCOUNTER → 2023-05-19 | Outpatient (CLI) | payer MEDICARE, OTHER ==
[2023-05-19 16:03] LABS: HCT 43.9 % (39.6-50.0); HGB 14.4 g/dL (13.0-17.0); MCH 29.4 pg (27.0-32.0); MCHC 32.8 g/dL (32.0-37.0); MCV 89.6 FL (80.0-97.0); Mean Platelet Volume 10.3 FL (9.5-12.2); NRBC Per 100 WBC 0 X 10*3/uL (0.00-0.01); Platelet Count 217 X 10*3/uL (140-440); WBC 6.82 X 10*3/uL (4.50-10.00)
[2023-05-19 16:05] LABS: Blood Urea Nitrogen 14.9 mg/dL (9.0-27.0); Carbon Dioxide 28.5 mmol/L (21.6-31.8); Chloride 107 mmol/L (96-109); Potassium 4.5 mmol/L (3.5-5.5); Sodium 143 mmol/L (135-145)
== END | disposition home or self-care (01) ==
LOC: LABPAT 07:38
PROVIDERS: ATTEND Internal Medicine
DX: Z01.812 Encounter for preprocedural laboratory examination (principal); R06.02 Shortness of breath
CPT/HCPCS: 80051; 82565; 84520; 85027

== ENCOUNTER → 2023-05-24 | Day surgery (SDC) | payer MEDICARE, OTHER ==
[~2023-05-24] MED LIST changes: +ALPRAZolam 0.25 MG TAB PO PRN; +ALPRAZolam 0.5 MG TAB PO PRN; +ASPIRIN 325 MG TAB PO STA; +ATORVASTATIN 80 MG TAB PO STA; -BAMLANIVIMAB (EUA) 700 MG, ETESEVIMAB (EUA) 1,400 MG in SODIUM CHLORIDE 0.9% 50 ML IVPB ONE; +HEPARIN SODIUM 1,000 UN/ML (10ML VL) IV ONE; +HEPARIN SODIUM 1,000 UN/ML (10ML VL) ONE; +HEPARIN SODIUM,PORCINE (1 ML) 2,500 UNIT in SODIUM CHLORIDE 0.9% 250 ML IRRIGATION PRN; +HEPARIN SODIUM,PORCINE 10,000 UNIT in SODIUM CHLORIDE 0.9% 1,000 ML IRRIGATION PRN; +IOPAMIDOL-370 100ML BTL INJ ONE; +LIDOCAINE 1% INJ 10MG/ML (5 ML VIAL-PF) SQ ONE; +NITROGLYCERIN SL TABS 0.4 MG TAB SUBLINGUAL PRN; +SODIUM CHLORIDE 0.9% 1,000 ML in EMPTY BAG 1 BAG IV SCH; -SODIUM CHLORIDE 0.9% 50 ML IVPB ONE; -SODIUM CHLORIDE 0.9% 500 ML 500 ML in EMPTY BAG 1 BAG IV PRN; +VERAPAMIL 2.5 MG/ML 2 ML AMP ONE; +fentaNYL (PF) 50 MCG/ML 2 ML AMP ONE
[2023-05-24 08:01] VITALS: RESP 16; TEMP 98.8
[2023-05-24] MEDS: MIDAZOLAM 2 MG/2 ML VIAL IVP ONE ×2 (08:34→08:47)
[2023-05-24] MEDS: fentaNYL (PF) 50 MCG/ML 2 ML AMP IVP ONE ×2 (08:34→08:47)
[2023-05-24] MEDS: VERAPAMIL SYRINGE (5 MG/10 ML) INTRAARTER ONE ×2 (08:46→09:13)
[2023-05-24 09:07] LABS: O2 Sat Blood Gas 74.9 %
[2023-05-24 09:08] LABS: O2 Sat Blood Gas 70.3 %
[2023-05-24 09:10] LABS: O2 Sat Blood Gas 87.8 %
--- NOTE | 2023-05-24 09:29 | P.CARDCATH ---
Description of Procedure: PROCEDURES PERFORMED: Left heart catheterization, right heart catheterization, bilateral coronary angiography, ultrasound guided arterial access INDICATION: Abnormal stress test CONSENT:I have discussed the risks, benefits and alternative therapies for the above-mentioned procedure and for both sedation/analgesia as well as necessary blood product administration, if indicated, as they pertain to this patient. The patient has indicated understanding and acceptance of the risks and procedures discussed. PROCEDURE: After the risks, benefits and alternatives of the above mentioned procedure explained in detail with the patient, informed consent was obtained. Patient was taken to the catheterization lab and prepped and draped in usual fashion. Ultrasound guidance was used to assess for arterial access. 1% lidocaine was used to anesthetize the right radial artery and right brachial vein. A 6-[place] sheath was placed in the right radial artery and additional sheath was placed in the right brachial vein using modified Seldinger technique and ultrasound guidance. A 6-[place] catheter was inserted in the right atrium, right ventricle, pulmonary artery and PCWP and pressure measurements and oxygen saturations were obtained. Thermodilution was performed. Left coronary angiography was performed with a 5-[place] African JL 3.5 catheter and right coronary angiography was performed with a 6-South African AL 0.75 catheter in various views. A 5-[place] AR2 catheter was inserted into the left ventricle and pressure measurements were obtained. The right radial sheath was removed and a TR band was placed with hemostasis achieved. The brachial sheath was pulled and pressure was held with hemostasis achieved. The patient to lerated the procedure well. Patient was transported back to the post catheterization holding area in stable condition. Conscious Sedation: Patient was monitored under the direct supervision of myself for conscious sedation using Versed and fentanyl for a total duration of 40 minutes HEMODYNAMICS: Aorta: 138/62 LV: 141/19, LVEDP 27 PCWP: 21 PA: 52/19 mean 32 RV: 38/5 RA: 4 Right radial oxygen saturation: 88% PA oxygen saturation: 70% Right Atrium oxygen saturation: 75% Cardiac output by Adan: 13.4 L/min Cardiac index by Adan: 5.7 L/min/m2 Cardiac output by thermodilution: 7.8 L/m Cardiac index by thermodilution: 3.3 L/m/m SELECTIVE CORONARY ARTERIOGRAPHY: LEFT MAIN: The left main is a large caliber vessel which bifurcates into the LAD and circumflex. There is no significant stenosis. LEFT ANTERIOR DESCENDING CORONARY ARTERY: LAD is a large caliber vessel which wraps around to the apex. There is a mild 20% mid LAD stenosis and otherwise normal LEFT CIRCUMFLEX CORONARY ARTERY: Left circumflex is a moderate caliber vessel without significant stenosis. RIGHT CORONARY ARTERY: The right coronary artery is a large caliber vessel which gives off a PDA and PLV branch and is the dominant vessel. There is no significant stenosis. FINAL IMPRESSION: 1. Relatively normal coronary arteries other than a mid LAD 20% stenosis 2. Elevated left sided filling pressures 3. Normal cardiac output 4. Resting borderline hypoxia, oxygen saturation 88-92% PLAN: 1. Aggressive risk factor modification per most recent ACC/AHA guidelines. 2. Increase Bumex to twice a day and monitor response. 3. Follow-up in the office in 1-2 weeks.
[2023-05-24 14:16] VITALS: BP 124/58; PULSE 56
== END ==
LOC: CATHCVL 07:09
PROVIDERS: ATTEND Internal Medicine
DX: I70.8 Atherosclerosis of other arteries (principal); R09.02 Hypoxemia
CPT/HCPCS: 93460; 76937; 85018; 82810; C1887; C1769; C1894; C1751; J2250; J2001; J3010; J1644; Q9967

== ENCOUNTER 2023-11-03 20:12 | Emergency (ER) | payer MEDICARE, OTHER ==
--- NOTE | 2023-11-03 20:39 | ED ---
General Adult HPI - General Source: patient, EMS Mode of arrival: EMS Limitations: no limitations <Aki Donaldson - Last Filed: 11/03/23 22:55> <Tc Badillo - Last Filed: 11/04/23 03:47> - General Chief complaint: Chest Pain Stated complaint: Chest Pain Time Seen by Provider: 11/03/23 20:23 - History of Present Illness Initial comments: Dictation was produced using [employer] dictation software. please excuse any g rammatical, word or spelling errors. Chief Complaint: 73-year-old male with history of coronary artery disease presents with chest pain History of Present Illness: Patient 73-year-old male presents to the emergency department 1 day of chest pressure. States the pressure is substernal and radia maria fernanda on the left upper extremity. Patient went to the primary care physician's office for an evaluation. Patient had EKG performed which showed his usual left bundle branch block. Patient was given aspirin and EMS was called from the clinic and patient was brought to the ER. Patient states that he had a cardiac catheterization in the past showing nonobstructing blockage. The ROS documented in this emergency department record has been reviewed and confirmed by me. Those systems with pertinent positive or negative responses have been documented in the HPI. All other systems are other negative and/or noncontributory. (Aki Donaldson) - Related Data Home Medications Medication Instructions Recorded Confirmed Acetaminophen [Tylenol Extra 1,000 mg PO DAILY PRN 05/19/23 05/24/23 Strength] Atorvastatin [Lipitor] 20 mg PO DAILY 05/19/23 05/24/23 Bumetanide [BUMEX] 2 mg PO DAILY 05/19/23 05/24/23 Famotidine [Pepcid] 40 mg PO HS 05/19/23 05/24/23 Ibuprofen [Advil] 400 mg PO DAILY PRN 05/19/23 05/19/23 Krill/Om-3/Dha/Epa/Phospho/Ast 1 each PO DAILY 05/19/23 05/24/23 [Krill Oil 500 mg Softgel] Mv-Min/Folic/K1/Lycopen/Lutein 1 tab PO DAILY 05/19/23 05/24/23 [Centrum Silver Men Tablet] Omeprazole 40 mg PO HS 05/19/23 05/24/23 Rivaroxaban [Xarelto] 20 mg PO DAILY 05/19/23 05/24/23 Previous Rx's Medication Instructions Recorded Losartan [Cozaar] 25 mg PO DAILY #30 tab 10/06/18 Metoprolol Succinate (ER) [Toprol 25 mg PO DAILY #30 tab.er.24h 10/06/18 XL] Allergies Allergy/AdvReac Type Severity Reaction Status Date / Time No Known Allergies Allergy Verified 05/19/23 16:23 Review of Systems ROS Other: All systems not noted in ROS Statement are negative. <Aki Donaldson - Last Filed: 11/03/23 22:55> ROS Other: All systems not noted in ROS Statement are negative. <Tc Badillo - Last Filed: 11/04/23 03:47> ROS Statement: Those systems with pertinent positive or pertinent negative responses have been documented in the HPI. 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., [place] -USES HEARING AIDS, had 5 teeth pulled last week History of Any Multi-Drug Resistant Organisms: None Reported Past Surgical History: Cardiac Ablation, Orthopedic Surgery, Prostate Surgery, Tonsillectomy Additional Past Surgical History / Comment(s): 02/16/15 robotic laparoscopic prostatectomy with short term supra pubic catheter-done at [facility] facility, Cardiac ablation 2013 at [facility], colonoscopy, R knee arthroscopy, cardioversion Past Anesthesia/Blood Transfusion Reactions: No Reported Reaction Past Psychological History: No Psychological Hx Reported Past Alcohol Use History: Occasional Additional Past Alcohol Use History / Comment(s): Pt states he smoked pipe for approximately 10 yrs and quit 5-6 yrs ago (2012). Past Drug Use History: None Reported - Past Family History Father Family Medical History: Cancer, Coronary Artery Disease (CAD), Myocardial Infarction (HI) Additional Family Medical History / Comment(s): Father had heart disease, HI, stents and valve replacement all of which started in his 40's and he lived to be 80 yrs old. Mother Family Medical History: No Reported History Additional Family Medical History / Comment(s): states multiple health problems <Aki Donaldson - Last Filed: 11/03/23 22:55> General Exam Limitations: no limitations <Aki Donaldson - Last Filed: 11/03/23 22:55> - General Exam Comments Initial Comments: PHYSICAL EXAM: General Impression: Alert and oriented x3, not in acute distress HEENT: Normocephalic atraumatic, extra-ocular movements intact, pupils equal and reactive to light bilaterally, mucous membranes moist. Cardiovascular: Heart regular rate and rhythm Chest: Able to complete full sentences, no retractions, no tachypnea Abdomen: abdomen soft, non-tender, non-distended, no organomegaly Musculoskeletal: Pulses present and equal in all extremities, no peripheral edema Motor: no focal deficits noted Neurological: CN II-XII grossly intact, no focal motor or sensory deficits noted Skin: Intact with no visualized rashes Psych: Normal affect and mood (Aki Donaldson) Course Vital Signs 11/03/23 11/03/23 20:26 21:51 Temperature 98.2 F Pulse Rate 74 67 Respiratory 16 18 Rate Blood Pressure 151/72 108/66 O2 Sat by Pulse 96 Oximetry EKG Findings - EKG Results: EKG: interpreted by ERMD, sinus rhythm (Rate 61 bpm) - Blocks, [place], Hypertrophy, ST Abn: AV and intraventricular conduction: left bundle branch block (fixed/intermittent , complete/incomplete) (Which is present on previous EKG) <Tc Badillo - Last Filed: 11/04/23 03:47> Medical Decision Making <Aki Donaldson - Last Filed: 11/03/23 22:55> - Lab Data Result diagrams: 11/03/23 22:50 11/03/23 22:50 <Tc Badillo - Last Filed: 11/04/23 03:47> - Medical Decision Making Was pt. sent in by a medical professional or institution (, PA, REGISTERED SAFETY ENGINEER, urgent care, hospital, or long term...) When possible be specific @ -[No] Did you speak to anyone other than the patient for history (EMS, parent, family, police, friend...)? What history was obtained from this source @ - at the bedside along with EMS as described above Did you review nursing and triage notes (agree or disagree)? Why? @ -[I reviewed and agree with nursing and triage notes] Were old charts reviewed (outside hosp., previous admission, EMS record, old EKG, old radiological studies, urgent care reports/EKG's, long term records)? Report findings @ -[No old charts were reviewed] Differential Diagnosis (chest pain, altered mental status, abdominal pain women, abdominal pain men, vaginal bleeding, musculoskeletal, weakness, fever, dyspnea, syncope, headache, dizziness, GI bleed, back pain, seizure, CVA, palpatations, mental health)? @ -Differential Chest Pain: Stable Angina, Unstable Angina, STEMI, NSTEMI Aortic Dissection, Pneumothorax, Musculoskeletal, Esophageal Spasm GERD, Cholecystitis, Pancreatitis, Zoster, this is not meant to be an all-inclusive list. EKG interpreted by me (3pts min.). @ - X-rays interpreted by me (1pt min.). @ -Chest x-ray shows no acute processes CT interpreted by me (1pt min.). @ -[None done] U/S interpreted by me (1pt. min.). @ -[None done] What testing was considered but not performed or refused? (CT, X-rays, U/S, labs)? Why? @ -[None] What meds were considered but not given or refused? Why? @ -[None] Did you discuss the management of the patient with other professionals (pr ofessionals i.e. , PA, REGISTERED SAFETY ENGINEER, lab, RT, psych nurse, delinquency prevention social worker, investor relations coordinator, teacher, health officer, caser in)? Give summary @ -[No] Was smoking cessation discussed for >3mins.? @ -[No] Was critical care preformed (if so, how long)? @ -[No] Were there social determinants of health that impacted care today? How? (Homelessness, low income, unemployed, alcoholism, drug addiction, transportation, low edu. Level, literacy, decrease access to med. care, senior care, rehab)? @ -[No] Was there de-escalation of care discussed even if they declined (Discuss DNR or withdrawal of care, Hospice)? DNR status @ -[No] What co-morbidities impacted this encounter? (DM, HTN, Smoking, COPD, CAD, Cancer, CVA, ARF, Chemo, Hep., AIDS, mental health diagnosis, sleep apnea, morbid obesity)? @ -Coronary artery disease Was patient admitted / discharged? Hospital course, mention meds given and route, prescriptions, significant lab abnormalities, going to OR and other pertinent info. @ -73-year-old male presents emergency department with ACS sounding chest pain. Vital signs upon arrival are within acceptable limits. Patient care signed out to Dr. Badillo for follow-up of labs. Patient had been given prehospital aspirin. Patient given nitroglycerin. Undiagnosed new problem with uncertain prognosis? @ -[No Drug Therapy requiring intensive monitoring for toxicity (Heparin, Nitro, Insulin, Cardizem)? @ -[No] Were any procedures done? @ -[No] Diagnosis/symptom? Acute, or Chronic, or Acute on Chronic? Uncomplicated (without systemic symptoms) or Complicated (systemic symptoms)? @ -Chest pain Side effects of treatment? @ -[No] Exacerbation, Progression, or Severe Exacerbation? @ -[No] Poses a threat to life or bodily function? How? (Chest pain, [place], HI, pneumonia, PE, COPD, DKA, ARF, appy, cholecystitis, CVA, Diverticulitis, Homicidal, Suicidal, threat to staff... and all critical care pts) @ -Yes (Aki Donaldson) Patient is reevaluated and at this point would prefer to go home. We discussed there is small risk patient offered admission, but he wants to see Dr. Pearl as outpatient. He has had 2 troponins and is symptom-free. Patient does agree to return should symptoms recur or new symptoms develop (Tc Badillo) - Lab Data Lab Results 11/03/23 11/03/23 11/03/23 Range/Units 22:50 22:50 22:50 WBC 7.0 (3.8-10.6) k/uL RBC 5.02 (4.30-5.90) m/uL Hgb 14.6 (13.0-17.5) gm/dL Hct 45.3 (39.0-53.0) % MCV 90.2 (80.0-100.0) fL MCH 29.2 (25.0-35.0) pg MCHC 32.3 (31.0-37.0) g/dL RDW 14.2 (11.5-15.5) % Plt Count 217 (150-450) k/uL MPV 7.7 Neutrophils % 60 % Lymphocytes % 27 % Monocytes % 8 % Eosinophils % 2 % Basophils % 1 % Neutrophils # 4.2 (1.3-7.7) k/uL Lymphocytes # 1.9 (1.0-4.8) k/uL Monocytes # 0.6 (0-1.0) k/uL Eosinophils # 0.1 (0-0.7) k/uL Basophils # 0.1 (0-0.2) k/uL PT 10.4 (10.0-12.5) sec INR 0.9 (<1.2) APTT 29.0 (22.0-30.0) sec Sodium 140 (137-145) mmol/L Potassium 3.6 (3.5-5.1) mmol/L Chloride 108 H (98-107) mmol/L Carbon Dioxide 28 (22-30) mmol/L Anion Gap 4 mmol/L BUN 18 (9-20) mg/dL Creatinine 0.62 L (0.66-1.25) mg/dL Est GFR (CKD-EPI)AfAm >90 (>60 ml/min/1.73 sqM) Est GFR (CKD-EPI)NonAf >90 (>60 ml/min/1.73 sqM) Glucose 118 H (74-99) mg/dL Calcium 8.5 (8.4-10.2) mg/dL Magnesium 2.1 (1.6-2.3) mg/dL Total Bilirubin 0.8 (0.2-1.3) mg/dL AST 22 (17-59) U/L ALT 23 (4-49) U/L Alkaline Phosphatase 67 (38-126) U/L Troponin I (0.000-0.034) ng/mL Total Protein 6.4 (6.3-8.2) g/dL Albumin 3.7 (3.5-5.0) g/dL 11/03/23 11/04/23 Range/Units 22:50 02:46 WBC (3.8-10.6) k/uL RBC (4.30-5.90) m/uL Hgb (13.0-17.5) gm/dL Hct (39.0-53.0) % MCV (80.0-100.0) fL MCH (25.0-35.0) pg MCHC (31.0-37.0) g/dL RDW (11.5-15.5) % Plt Count (150-450) k/uL MPV Neutrophils % % Lymphocytes % % Monocytes % % Eosinophils % % Basophils % % Neutrophils # (1.3-7.7) k/uL Lymphocytes # (1.0-4.8) k/uL Monocytes # (0-1.0) k/uL Eosinophils # (0-0.7) k/uL Basophils # (0-0.2) k/uL PT (10.0-12.5) sec INR (<1.2) APTT (22.0-30.0) sec Sodium (137-145) mmol/L Potassium (3.5-5.1) mmol/L Chloride (98-107) mmol/L Carbon Dioxide (22-30) mmol/L Anion Gap mmol/L BUN (9-20) mg/dL Creatinine (0.66-1.25) mg/dL Est GFR (CKD-EPI)AfAm (>60 ml/min/1.73 sqM) Est GFR (CKD-EPI)NonAf (>60 ml/min/1.73 sqM) Glucose (74-99) mg/dL Calcium (8.4-10.2) mg/dL Magnesium (1.6-2.3) mg/dL Total Bilirubin (0.2-1.3) mg/dL AST (17-59) U/L ALT (4-49) U/L Alkaline Phosphatase (38-126) U/L Troponin I <0.012 <0.012 (0.000-0.034) ng/mL Total Protein (6.3-8.2) g/dL Albumin (3.5-5.0) g/dL Disposition <Aki Donaldson - Last Filed: 11/03/23 22:55> Is patient prescribed a controlled substance at d/c from ED?: No <Tc Badillo - Last Filed: 11/04/23 03:47> Clinical Impression: Chest pain Disposition: HOME SELF-CARE Condition: Good Instructions (If sedation given, give patient instructions): Chest Pain (ED) Referrals: Chris Joshua MD [Primary Care Provider] - 1-2 days Shahzad Pearl DO [STAFF PHYSICIAN] - 1-2 days
[2023-11-03 20:52] VITALS: TEMP 98.2
[2023-11-03] MEDS: NITROGLYCERIN SL TABS 0.4 MG TAB SUBLINGUAL STA (21:51)
[2023-11-03 22:17] VITALS: RESP 18
[2023-11-03 23:12] LABS: Basophils # (A) 0.1 k/uL (0-0.2); Basophils % (A) 1 %; Eosinophils # (A) 0.1 k/uL (0-0.7); Eosinophils % (A) 2 %; HCT 45.3 % (39.0-53.0); HGB 14.6 gm/dL (13.0-17.5); Lymphocytes # (A) 1.9 k/uL (1.0-4.8); Lymphocytes % (A) 27 %; MCH 29.2 pg (25.0-35.0); MCHC 32.3 g/dL (31.0-37.0); MCV 90.2 fL (80.0-100.0); Mean Platelet Volume 7.7; Monocytes # (A) 0.6 k/uL (0-1.0); Monocytes % (A) 8 %; Neutrophils # (A) 4.2 k/uL (1.3-7.7); Neutrophils % (A) 60 %; Platelet Count 217 k/uL (150-450); RBC 5.02 m/uL (4.30-5.90); RDW 14.2 % (11.5-15.5)
[2023-11-03 23:20] LABS: INR 0.9 (<1.2); Prothrombin Time 10.4 sec (10.0-12.5)
[2023-11-03 23:22] LABS: ALT 23 U/L (4-49); AST 22 U/L (17-59); African American GFR (CKD) >90 (>60 ml/min/1.73 sqM); Albumin 3.7 g/dL (3.5-5.0); Alkaline Phosphatase 67 U/L (38-126); Anion Gap 4 mmol/L; Blood Urea Nitrogen 18 mg/dL (9-20); Calcium 8.5 mg/dL (8.4-10.2); Carbon Dioxide 28 mmol/L (22-30); Chloride 108 mmol/L (98-107); Glucose 118 mg/dL (74-99); Magnesium 2.1 mg/dL (1.6-2.3); Non-African American GFR(CKD) >90 (>60 ml/min/1.73 sqM); Potassium 3.6 mmol/L (3.5-5.1); Sodium 140 mmol/L (137-145); Total Bilirubin 0.8 mg/dL (0.2-1.3); Total Protein 6.4 g/dL (6.3-8.2)
--- NOTE | 2023-11-04 02:47 | XR ---
EXAMINATION TYPE: XR chest 2V DATE OF EXAM: 11/03/2023 9:39 PM CLINICAL INDICATION:Male, 73 years old with history of Chest Pain; [facility] COMPARISON: 10/04/2018 TECHNIQUE: XR chest 2V. Frontal and lateral views of the chest.. FINDINGS: Lines/Tubes/Devices: No indwelling lines are seen. Heart/mediastinum: Heart size upper normal. Mediastinum appears normal. No evidence of hilar promin ence. Pulmonary vascularity: Not increased, Lungs/Pleura: There is no evidence of pleural effusion, focal consolidation, or pneumothorax. Scatte red senescent parenchymal changes. Musculoskeletal: No acute osseous abnormality demonstrated in the limits of the exam. Other findings: None. IMPRESSION: No acute cardiopulmonary abnormality.
[2023-11-04 04:53] VITALS: BP 142/78; PULSE 84
== END 2023-11-04 04:24 | disposition home or self-care (01) ==
LOC: EC 20:12
DX: I44.7 Left bundle-branch block, unspecified (principal); I25.10 Atherosclerotic heart disease of native coronary artery without angina pectoris
CPT/HCPCS: 36415; 71046; 80053; 83735; 84484; 85025; 85610; 85730; 93005; 99285

== ENCOUNTER → 2024-07-18 | Outpatient (CLI) | payer MEDICARE, OTHER ==
--- NOTE | 2024-07-18 17:30 | CT ---
EXAMINATION TYPE: CT abdomen pelvis wo con DATE OF EXAM: 07/18/2024 5:21 PM COMPARISON: 07/11/2019 CLINICAL INDICATION: Male, 73 years old with history of N43.2 OTHER HYDROCELE; Hydrocele. TECHNIQUE: Axial CT abdomen pelvis wo con;Sagittal and coronal reformats were created on a separate workstation. Contrast used: mL of , (none if empty) Oral contrast used: with Oral Contrast (none if empty) CT DLP: 1520.5 mGycm, Automated exposure control for dose reduction was used. FINDINGS: LOWER CHEST: Heart is mildly enlarged for size. ABDOMEN LIVER: Unremarkable GALLBLADDER AND BILE DUCTS: Unremarkable. PANCREAS: Unremarkable. SPLEEN: Unremarkable. ADRENAL GLANDS: Unremarkable. KIDNEYS AND URETERS: Mild bilateral hydronephrosis. No obstructing calculus visualized. PELVIS BLADDER: No evidence for wall thickening or mass given limitations of exam. REPRODUCTIVE: The prostate gland appears surgically absent.There is a large right hydrocele noted. Th e right testis is near the inguinal canal. No left hydrocele. ABDOMEN & PELVIS STOMACH AND BOWEL: No evidence of bowel obstruction. Few scattered colonic diverticula. Small hiatal hernia. PERITONEUM/RETROPERITONEUM: No evidence of pneumoperitoneum or free fluid. VASCULATURE: No evidence of aortic aneurysm. MUSCULOSKELETAL: No acute osseous abnormalities. Mild disc degeneration changes are present throughou t the thoracolumbar spine. LYMPH NODES: No gross evidence for lymphadenopathy. SOFT TISSUE/ABDOMINAL WALL: Small fat-containing umbilical hernia. IMPRESSION: 1. Large right hydrocele. 2. Postsurgical changes with prostatectomy suggested mild bilateral hydronephrosis possibly due to ch ronic bladder outflow obstruction. 3. Scattered colonic diverticula. 4. Mild cardiomegaly. 5. Small hiatal hernia. [facility], , 07/18/2024 5:28 PM
== END | disposition home or self-care (01) ==
LOC: RADCTMAIN 15:02
PROVIDERS: ATTEND Urology
DX: N13.30 Unspecified hydronephrosis (principal); N43.2 Other hydrocele; K57.30 Diverticulosis of large intestine without perforation or abscess without bleeding; I51.7 Cardiomegaly; K44.9 Diaphragmatic hernia without obstruction or gangrene; Z98.890 Other specified postprocedural states
CPT/HCPCS: 74176

== ENCOUNTER → 2024-09-09 | Outpatient (CLI) | payer MEDICARE, OTHER ==
--- NOTE | 2024-09-09 07:42 | CT ---
EXAMINATION TYPE: CT brain wo con DATE OF EXAM: 09/09/2024 COMPARISON: None CLINICAL INDICATION: Male, 73 years old with history of R41.0 disorientation; PHH, DISORIENTATION TECHNIQUE: CT scan of the head is performed without contrast. CT DLP: 1119.[address] CTDI: mGy Automated exposure control for dose reduction was used. FINDINGS: There is no acute intracranial hemorrhage or midline shift identified. There is diffuse v entricular and sulcal prominence consistent with diffuse age-related cerebral atrophy. There is low- attenuation in the periventricular white matter consistent with chronic small vessel ischemic change. The globes are intact and the visualized sinuses are clear. IMPRESSION: No acute intracranial hemorrhage or midline shift. There is diffuse age-related cerebra l atrophy and chronic small vessel ischemic change noted. [facility], , 09/09/2024 7:40 AM
== END | disposition home or self-care (01) ==
LOC: RADCTMAIN 07:13
PROVIDERS: ATTEND Family Medicine
DX: G31.9 Degenerative disease of nervous system, unspecified (principal); I67.82 Cerebral ischemia; R41.0 Disorientation, unspecified
CPT/HCPCS: 70450